=== PATIENT | female | born 1950 | race Caucasian/White ===

== ENCOUNTER 2016-12-16 06:56 | Inpatient (IN) | payer OTHER ==
[~2016-12-16] VITALS: Ht 157.5 cm; Wt 54.2 kg
[~2016-12-16 06:56] MED LIST: Atarax,Vistaril PO; BUSPAR10 MG PO; BUSPIRONE HCL15 MG PO; COGENTIN0.5 MG PO; FAMOTIDINE20 M1 PO; GEODON80 MG PO; HALDOL5 MG PO; Lasix PO; NORVASC5 MG PO; Proventil,Ventolin H IH; TEKTURNA150 MG PO; TEMAZEPAM30 MG PO; ZESTORETIC 20-1 EAC1 PO; ZOLOFT100 M1 PO; Zestril,Prinivil PO; Zoloft PO
[2016-12-16 07:55] LABS: EOSINOPHIL (%) 1.4 % (0-5); EOSINOPHIL COUNT 0.1 K/uL (0-0.3); HEMATOCRIT 38.6 % (36.0-46.0); IMMATURE GRANULOCYTE (%) 0.1 % (0.0-0.7); IMMATURE GRANULOCYTE COUNT 0.1 K/uL; LYMPHOCYTE COUNT 1.8 K/uL (1.0-2.8); MCH 29.6 PG (29.0-34.0); MCHC 33.7 G/DL (30.0-36.0); MCV 87.9 FL (83-99); MEAN PLAT.VOLUME 9.9 uM^3 (9.5-12.4); MONOCYTE (%) 6.2 % (3-12); MONOCYTE COUNT 0.5 K/uL (0-0.8); NEUTROPHIL (%) 69.6 % (45-76); NEUTROPHIL COUNT 5.4 K/uL (1.8-6.4); PLATELET COUNT 271 K/uL (156-360); RBC DIS.WIDTH-CV 14.5 % (11.8-14.6); RED BLOOD COUNT 4.39 M/uL (3.80-5.20); WHITE BLOOD COUNT 7.8 K/uL (4.1-10.2)
[2016-12-16 08:27] LABS: ANION GAP 9 MEQ/L (2-14); CHLORIDE 108 MEQ/L (99-109); POTASSIUM 3.4 MEQ/L (3.7-5.4); SAMPLE HEMOLYSIS CHECK 0; SAMPLE ICTERIC CHECK 0; SAMPLE LIPEMIA CHECK 0; SODIUM 141 MEQ/L (136-147)
[2016-12-16 08:34] LABS: GFR ESTIMATE (CALCULATED) > 59 mL/min/; GLUCOSE 97 mg/dL (70-99); SERUM ETHYL ALCOHOL < 10 mg/dL; UREA NITROGEN (BUN) 12 mg/dL (9-23)
[2016-12-16 11:10] LABS: AMPHETAMINE NEGATIVE (500 ng/mL); BARBITURATES NEGATIVE (200 ng/mL); BENZODIAZEPINES PRESUMPTIVE POSITIVE (150 ng/mL); COCAINE NEGATIVE (150 ng/mL); INTERNAL CONTROLS VALID? YES; METHADONE NEGATIVE (200 ng/mL); METHAMPHETAMINE NEGATIVE (500 ng/mL); OPIATES (MORPHINE) NEGATIVE (100 ng/mL); OXYCODONE NEGATIVE (100 ng/mL); PHENCYCLIDINE NEGATIVE (25 ng/mL); PROPOXYPHENE NEGATIVE (300 ng/mL); THC CANNABINOIDS NEGATIVE (50 ng/mL); TRICYCLIC ANTIDEPRESSANTS NEGATIVE (300 ng/mL)
[2016-12-16 11:11] LABS: ADD MEDTOX COMMENT Y
[2016-12-16 11:53] LABS: BENZODIAZEPINES, URINE SCREEN POSITIVE (200 ng/mL)
[2016-12-16 15:30] VITALS: BP 131/66
[2016-12-17 08:03] VITALS: BP 138/86
[2016-12-17 15:14] VITALS: BP 129/77
[2016-12-17 21:13] VITALS: BP 164/80
[2016-12-18 15:36] VITALS: BP 141/67
[2016-12-19 08:04] VITALS: BP 169/97
[2016-12-19 16:16] VITALS: BP 165/84
[2016-12-19 19:37] VITALS: BP 180/98
[2016-12-20 07:48] VITALS: BP 165/81
[2016-12-20 15:50] VITALS: BP 126/77
[2016-12-21 08:02] VITALS: BP 149/94
[2016-12-21 15:25] VITALS: BP 168/89
[2016-12-22 07:29] VITALS: BP 162/79
[2016-12-22 15:39] VITALS: BP 133/78
[2016-12-23 07:52] VITALS: BP 177/90
[2016-12-23 11:47] VITALS: BP 128/69
[2016-12-23 15:33] VITALS: BP 122/76
[2016-12-24 07:43] VITALS: BP 161/93
[2016-12-24 10:42] VITALS: BP 129/64
[2016-12-24 16:16] VITALS: BP 145/72
[2016-12-25 07:58] VITALS: BP 144/81
[2016-12-25 15:32] VITALS: BP 165/81
[2016-12-25 18:36] VITALS: BP 164/76
[2016-12-26 07:52] VITALS: BP 165/75
[2016-12-26 11:02] VITALS: BP 154/98
[2016-12-26 15:19] VITALS: BP 180/100
[2016-12-26 18:00] VITALS: BP 128/78
[2016-12-27 07:55] VITALS: BP 143/86
[2016-12-27 15:20] VITALS: BP 136/89
[2016-12-28 07:50] VITALS: BP 139/87
[2016-12-28 15:31] VITALS: BP 194/93
[2016-12-29 08:03] VITALS: BP 121/79
[2016-12-29 15:41] VITALS: BP 154/86
[2016-12-30 07:54] VITALS: BP 138/82
[2016-12-30 15:43] VITALS: BP 168/88
[2016-12-31 09:30] VITALS: BP 143/94
[2016-12-31 15:17] VITALS: BP 128/69
[2017-01-01 07:40] VITALS: BP 125/70
[2017-01-01 15:30] VITALS: BP 153/92
[2017-01-02 11:33] LABS: ADD MIUA? YES; BILIRUBIN NEGATIVE; BLOOD NEGATIVE; COLOR YELLOW ((YELLOW)); GLUCOSE (STRIP) NEGATIVE; KETONES 5; LEUKOCYTES LARGE; NITRITE POSITIVE; PROTEIN (STRIP) NEGATIVE; SPECIFIC GRAVITY 1.018 (1.000-1.030); UROBILINOGEN 0.2 MG/DL (0.2-1.0)
[2017-01-02 12:48] LABS: BACTERIA 3+ /HPF; EPITHELIAL CELLS RARE /HPF; MUCUS NONE SEEN /LPF; RED BLOOD CELLS 0-5 /HPF (0-5); WHITE BLOOD CELLS 20-30 /HPF (0-5)
[2017-01-03 15:49] VITALS: BP 133/65
[2017-01-04 08:08] VITALS: BP 128/82
[2017-01-04 15:11] VITALS: BP 102/56
[2017-01-05 07:46] VITALS: BP 135/82
[2017-01-05 15:19] VITALS: BP 160/82
[2017-01-06 07:57] VITALS: BP 143/82
[2017-01-06 15:56] VITALS: BP 109/73
[2017-01-07 08:01] VITALS: BP 122/69
[2017-01-07 15:59] VITALS: BP 133/79
[2017-01-08 07:55] VITALS: BP 147/69
[2017-01-08 15:38] VITALS: BP 129/81
[2017-01-09 08:04] VITALS: BP 163/79
[2017-01-09 11:46] VITALS: BP 136/91
[2017-01-09 15:41] VITALS: BP 115/72
[2017-01-10 08:01] VITALS: BP 121/77
[2017-01-10 16:06] VITALS: BP 135/80
[2017-01-11 07:52] VITALS: BP 136/63
[2017-01-11 16:04] VITALS: BP 151/86
[2017-01-12 08:09] VITALS: BP 116/65
[2017-01-12 15:58] VITALS: BP 141/74
[2017-01-13 15:31] VITALS: BP 114/70
[2017-01-14 09:48] VITALS: BP 157/70
[2017-01-14 15:51] VITALS: BP 106/62
[2017-01-15 07:30] VITALS: BP 139/86
[2017-01-15 16:06] VITALS: BP 117/78
[2017-01-16 07:45] VITALS: BP 117/71
[2017-01-16 16:06] VITALS: BP 136/87
[2017-01-17 07:59] VITALS: BP 110/72
[2017-01-17 14:59] VITALS: BP 136/82
[2017-01-18 10:09] VITALS: BP 129/93
[2017-01-18] MEDS ORDERED: PANTOPRAZOLE SO40 MG PO (10:14)
[2017-01-18] MEDS ORDERED: AMLODIPINE BESYL5 MG PO (10:14)
[2017-01-18] MEDS ORDERED: ZIPRASIDONE HCL80 MG PO (10:14)
[2017-01-18] MEDS ORDERED: HALDOL5 MG PO (10:14)
[2017-01-18] MEDS ORDERED: VENLAFAXINE HCL75 M3 PO (10:14)
[2017-01-18] MEDS ORDERED: LISINOPRIL20 MG PO (10:14)
== END 2017-01-18 11:20 | disposition home or self-care (01) | DRG 885 ==
LOC: EME 06:56 → 1WEST 12:49 → EDOF 12:49 → 1WEST 14:23
PROVIDERS: Emergency Medicine; Psychiatry & Neurology Psychiatry
DX: F25.0 Schizoaffective disorder, bipolar type (principal); Z91.19 Patient's noncompliance with other medical treatment and regimen; R45.851 Suicidal ideations; N39.0 Urinary tract infection, site not specified; F10.10 Alcohol abuse, uncomplicated; I10 Essential (primary) hypertension; J45.909 Unspecified asthma, uncomplicated; F17.200 Nicotine dependence, unspecified, uncomplicated
CPT/HCPCS: 70450; 80048; 80164; 81003; 84132; 84999; 85025; 90837; 97150 GO; 97167 GO; 99281; 99285; G0480; Q0177

== ENCOUNTER 2017-05-20 15:29 | Inpatient (IN) | payer OTHER ==
[~2017-05-20] VITALS: Ht 162.6 cm; Wt 57.5 kg
[~2017-05-20 15:29] MED LIST changes: +AMLODIPINE BESYL5 MG PO; +LISINOPRIL20 MG PO; +PANTOPRAZOLE SO40 MG PO; +VENLAFAXINE HCL75 M3 PO; +ZIPRASIDONE HCL80 MG PO
[2017-05-20 16:57] LABS: HEMATOCRIT 36.4 % (36.0-46.0); MCH 27.9 PG (29.0-34.0); MCHC 33.2 G/DL (30.0-36.0); MCV 84.1 FL (83-99); PLATELET COUNT 294 K/uL (156-360); RBC DIS.WIDTH-CV 13.9 % (11.8-14.6); RED BLOOD COUNT 4.33 M/uL (3.80-5.20)
[2017-05-20 17:07] LABS: CHLORIDE 103 mEq/L (99-109); POTASSIUM 3.5 mEq/L (3.7-5.4); SODIUM 134 mEq/L (136-147)
[2017-05-20 17:09] LABS: GLUCOSE 83 mg/dL (70-99)
[2017-05-20 17:10] LABS: ANION GAP 9 MEQ/L (2-14)
[2017-05-20 17:12] LABS: SERUM ETHYL ALCOHOL < 10 mg/dL
[2017-05-20 17:13] LABS: GFR ESTIMATE (CALCULATED) > 59 mL/min/
[2017-05-20 17:15] LABS: UREA NITROGEN (BUN) 12 mg/dL (9-23)
[2017-05-20 17:16] LABS: SALICYLATE < 5.0 MG/DL (15-30)
[2017-05-21 00:25] VITALS: BP 130/73
[2017-05-21 11:41] VITALS: BP 127/81
[2017-05-21 13:57] VITALS: BP 101/60
[2017-05-21 15:16] VITALS: BP 104/61
[2017-05-22 07:00] VITALS: BP 153/76
[2017-05-22 16:40] VITALS: BP 174/100
[2017-05-23 08:03] VITALS: BP 142/84
[2017-05-23 16:04] VITALS: BP 141/86
[2017-05-24 07:47] VITALS: BP 139/91
[2017-05-24 15:29] VITALS: BP 147/92
[2017-05-25 07:55] VITALS: BP 119/85
[2017-05-25 10:28] VITALS: BP 135/88
[2017-05-25 15:44] VITALS: BP 117/62
[2017-05-26 07:09] VITALS: BP 118/58
[2017-05-26 15:43] VITALS: BP 105/55
[2017-05-27 07:27] VITALS: BP 116/58
[2017-05-27 15:42] VITALS: BP 119/67
[2017-05-28 07:32] VITALS: BP 102/63
[2017-05-28 15:22] VITALS: BP 103/54
[2017-05-29 07:25] VITALS: BP 112/58
[2017-05-29 15:24] VITALS: BP 121/57
[2017-05-30 07:32] VITALS: BP 132/63
[2017-05-30 15:39] VITALS: BP 94/57
[2017-05-31 07:41] VITALS: BP 116/65
[2017-05-31 15:31] VITALS: BP 93/60
[2017-05-31 21:27] VITALS: BP 156/86
[2017-06-01 07:54] VITALS: BP 103/61
[2017-06-01 15:42] VITALS: BP 106/63
[2017-06-02 07:34] VITALS: BP 115/69
[2017-06-02 15:49] VITALS: BP 102/58
[2017-06-03 07:54] VITALS: BP 126/70
[2017-06-03 16:10] VITALS: BP 117/71
[2017-06-04 08:12] VITALS: BP 126/79
[2017-06-04 15:43] VITALS: BP 114/63
[2017-06-05 07:47] VITALS: BP 130/80
[2017-06-05 15:41] VITALS: BP 125/74
[2017-06-06 07:49] VITALS: BP 142/75
[2017-06-06 15:56] VITALS: BP 88/54
[2017-06-07 07:43] VITALS: BP 87/54
[2017-06-07 10:25] LABS: HEMATOCRIT 40.9 % (36.0-46.0); MCH 27.8 PG (29.0-34.0); MCV 86.8 FL (83-99); MEAN PLAT.VOLUME 10.1 uM^3 (9.5-12.4); PLATELET COUNT 253 K/uL (156-360); RBC DIS.WIDTH-CV 14.1 % (11.8-14.6); RBC DIS.WIDTH-SD 45.6 % (39-53); RED BLOOD COUNT 4.71 M/uL (3.80-5.20)
[2017-06-07 10:49] LABS: ALKALINE PHOSPHATASE 88 IU/L (3-129); ANION GAP 7 MEQ/L (2-14); CHLORIDE 105 MEQ/L (99-109); GFR ESTIMATE (CALCULATED) > 59 mL/min/; GLUCOSE 109 mg/dL (70-99); POTASSIUM 4.5 MEQ/L (3.7-5.4); SAMPLE HEMOLYSIS CHECK 0; SAMPLE ICTERIC CHECK 0; SAMPLE LIPEMIA CHECK 0; SODIUM 141 MEQ/L (136-147); TOTAL BILIRUBIN 0.3 MG/DL (0.0-1.0); UREA NITROGEN (BUN) 30 mg/dL (9-23)
[2017-06-07 15:30] VITALS: BP 125/86
[2017-06-08 07:52] VITALS: BP 92/53
[2017-06-08 15:31] VITALS: BP 119/67
[2017-06-09 07:47] VITALS: BP 105/59
[2017-06-09 15:27] VITALS: BP 137/82
[2017-06-10 07:51] VITALS: BP 136/83
[2017-06-10 15:54] VITALS: BP 135/83
[2017-06-11 07:40] VITALS: BP 115/62
[2017-06-11 15:25] VITALS: BP 139/76
[2017-06-12 07:51] VITALS: BP 132/76
[2017-06-12 15:37] VITALS: BP 91/64
[2017-06-12 18:41] VITALS: BP 104/61
[2017-06-13 07:59] VITALS: BP 115/61
[2017-06-13 16:04] VITALS: BP 133/58
[2017-06-14 07:46] VITALS: BP 105/60
[2017-06-14 15:51] VITALS: BP 124/75
[2017-06-15 08:13] VITALS: BP 116/59
[2017-06-15 15:37] VITALS: BP 114/62
[2017-06-16 07:26] VITALS: BP 119/66
[2017-06-16 15:50] VITALS: BP 103/59
[2017-06-17 08:21] VITALS: BP 123/68
[2017-06-17 15:45] VITALS: BP 116/70
[2017-06-18 08:24] VITALS: BP 99/64
[2017-06-18 13:21] VITALS: BP 92/53
[2017-06-18 16:30] VITALS: BP 145/74
[2017-06-19 07:55] VITALS: BP 135/75
[2017-06-19 16:26] VITALS: BP 113/57
[2017-06-20 09:09] VITALS: BP 163/85
[2017-06-20 16:58] VITALS: BP 122/84
[2017-06-21 07:54] VITALS: BP 154/70
[2017-06-21 11:35] VITALS: BP 114/63
[2017-06-21 15:34] VITALS: BP 116/60
[2017-06-22 07:37] VITALS: BP 117/63
[2017-06-22 15:42] VITALS: BP 102/58
[2017-06-23 07:48] VITALS: BP 119/58
[2017-06-23 15:43] VITALS: BP 110/70
[2017-06-24 07:43] VITALS: BP 118/60
[2017-06-25 07:48] VITALS: BP 113/55
[2017-06-25 15:24] VITALS: BP 102/68
[2017-06-26 08:27] VITALS: BP 125/56
[2017-06-26 16:06] VITALS: BP 138/66
[2017-06-27 07:24] VITALS: BP 132/68
[2017-06-27 15:23] VITALS: BP 136/94
[2017-06-28 07:47] VITALS: BP 124/54
[2017-06-28 15:39] VITALS: BP 122/58
[2017-06-29 08:31] VITALS: BP 124/58
[2017-06-29 15:43] VITALS: BP 155/60
[2017-06-30 07:08] VITALS: BP 99/55
[2017-06-30 15:31] VITALS: BP 126/60
[2017-07-01 07:30] VITALS: BP 112/56
[2017-07-01 15:25] VITALS: BP 132/67
[2017-07-02 07:42] VITALS: BP 144/75
[2017-07-02 15:13] VITALS: BP 110/57
[2017-07-03 07:49] VITALS: BP 108/57
[2017-07-03 16:14] VITALS: BP 119/71
[2017-07-04 07:23] VITALS: BP 118/63
[2017-07-04 15:34] VITALS: BP 139/77
[2017-07-05 07:39] VITALS: BP 132/61
[2017-07-05 15:35] VITALS: BP 105/57
[2017-07-06 07:47] VITALS: BP 123/65
[2017-07-06] MEDS ORDERED: SERTRALINE HCL100 MG PO (09:26)
[2017-07-06] MEDS ORDERED: ZIPRASIDONE HCL80 MG PO (09:26)
[2017-07-06] MEDS ORDERED: VENTOLIN HFA18 GM IH (09:26)
[2017-07-06] MEDS ORDERED: HALDOL5 MG PO (09:26)
[2017-07-06] MEDS ORDERED: AMLODIPINE BESYL5 MG PO (09:26)
[2017-07-06] MEDS ORDERED: LISINOPRIL20 MG PO (09:26)
[2017-07-06] MEDS ORDERED: COGENTIN0.5 MG PO (09:26)
== END 2017-07-06 13:13 | disposition home or self-care (01) | DRG 885 ==
LOC: EME → EDBD 15:29 → 1WEST 19:39 → EDOF 19:39 → 1WEST 23:43
PROVIDERS: Emergency Medicine; Psychiatry & Neurology Psychiatry
DX: F25.0 Schizoaffective disorder, bipolar type (principal); I10 Essential (primary) hypertension; Z91.19 Patient's noncompliance with other medical treatment and regimen; F22 Delusional disorders; J45.909 Unspecified asthma, uncomplicated; F17.200 Nicotine dependence, unspecified, uncomplicated
CPT/HCPCS: 70450; 80048; 80053; 81003; 85027; 90839; 94640; 94640 76; 97150 GO; 97166 GO; 97168 GO; 99202; 99281; 99285; G0480

== ENCOUNTER 2017-07-12 05:48 | Inpatient (IN) | payer OTHER ==
[~2017-07-12] VITALS: Ht 157.5 cm; Wt 59.5 kg
[2017-07-12] VITALS (9 sets, daily range): BP systolic 83–142; BP diastolic 56–86
[~2017-07-12 05:48] MED LIST changes: +SERTRALINE HCL100 MG PO; +VENTOLIN HFA18 GM IH
[2017-07-12 06:52] LABS: PROTHROMBIN TIME 11.3 SEC (10.2-12.9)
[2017-07-12 07:05] LABS: EOSINOPHIL (%) 0 % (0-5); HEMATOCRIT 19.3 % (36.0-46.0); IMMATURE GRANULOCYTE (%) 0.6 % (0.0-0.7); IMMATURE GRANULOCYTE COUNT 0.1 K/uL; INSTRUMENT ABS NEUTROPHIL CT 6.2 K/uL; LYMPHOCYTE COUNT 1.1 K/uL (1.0-2.8); MCHC 32.6 G/DL (30.0-36.0); MCV 88.9 FL (83-99); MEAN PLAT.VOLUME 10.3 uM^3 (9.5-12.4); MONOCYTE COUNT 0.5 K/uL (0-0.8); NEUTROPHIL (%) 79.8 % (45-76); NEUTROPHIL COUNT 6.2 K/uL (1.8-6.4); PLATELET COUNT 126 K/uL (156-360); RBC DIS.WIDTH-CV 14.9 % (11.8-14.6); RBC DIS.WIDTH-SD 47.8 % (39-53); RED BLOOD COUNT 2.17 M/uL (3.80-5.20); WHITE BLOOD COUNT 7.8 K/uL (4.1-10.2)
[2017-07-12 07:24] LABS: ALKALINE PHOSPHATASE 53 IU/L (3-129); ANION GAP 4 MEQ/L (2-14); CHLORIDE 113 MEQ/L (99-109); GFR ESTIMATE (CALCULATED) > 59 mL/min/; GLUCOSE 94 mg/dL (70-99); POTASSIUM 4.6 MEQ/L (3.7-5.4); SAMPLE HEMOLYSIS CHECK 0; SAMPLE ICTERIC CHECK 0; SAMPLE LIPEMIA CHECK 0; SODIUM 138 MEQ/L (136-147); TOTAL BILIRUBIN 0.2 MG/DL (0.0-1.0); UREA NITROGEN (BUN) 33 mg/dL (9-23)
[2017-07-12 13:06] LABS: TROP-I INTERPRETATION NEGATIVE; TROPONIN-I 0.12 ng/mL (0.0-0.30)
[2017-07-12 13:34] LABS: HEMATOCRIT 21.7 % (36.0-46.0); MCV 89.7 FL (83-99)
[2017-07-12 15:22] LABS: HEMATOCRIT 24.2 % (36.0-46.0); MCV 88.6 FL (83-99)
[2017-07-12 15:48] LABS: TROP-I INTERPRETATION NEGATIVE; TROPONIN-I 0.15 ng/mL (0.0-0.30)
[2017-07-12 22:55] LABS: MCV 85.1 FL (83-99)
[2017-07-12 23:16] LABS: TROP-I INTERPRETATION NEGATIVE
[2017-07-13] VITALS (7 sets, daily range): BP systolic 123–161; BP diastolic 66–82
[2017-07-13 05:30] LABS: HEMATOCRIT 25.5 % (36.0-46.0); MCH 29.2 PG (29.0-34.0); MCHC 34.1 G/DL (30.0-36.0); MCV 85.6 FL (83-99); MEAN PLAT.VOLUME 10.7 uM^3 (9.5-12.4); NRBC (%) 0.3 /100 WBC (0-0); PLATELET COUNT 110 K/uL (156-360); RBC DIS.WIDTH-SD 48.3 % (39-53); WHITE BLOOD COUNT 7.2 K/uL (4.1-10.2)
[2017-07-13 05:36] LABS: RED BLOOD COUNT 2.98 M/uL (3.80-5.20)
[2017-07-13 06:08] LABS: ALKALINE PHOSPHATASE 71 IU/L (3-129); ANION GAP 7 MEQ/L (2-14); CHLORIDE 111 MEQ/L (99-109); GFR ESTIMATE (CALCULATED) > 59 mL/min/; GLUCOSE 104 mg/dL (70-99); POTASSIUM 4.1 MEQ/L (3.7-5.4); SAMPLE HEMOLYSIS CHECK 0; SAMPLE ICTERIC CHECK 0; SAMPLE LIPEMIA CHECK 0; SODIUM 137 MEQ/L (136-147); UREA NITROGEN (BUN) 20 mg/dL (9-23)
[2017-07-13 06:12] LABS: TOTAL BILIRUBIN 0.5 MG/DL (0.0-1.0)
[2017-07-13] MEDS ORDERED: LISINOPRIL20 MG PO (14:00)
[2017-07-13] MEDS ORDERED: HALDOL10 MG PO (14:00)
[2017-07-13] MEDS ORDERED: AMLODIPINE BESYL5 MG PO (14:01)
[2017-07-13] MEDS ORDERED: BENZTROPINE ME0.5 MG PO (14:01)
[2017-07-13] MEDS ORDERED: SERTRALINE HCL100 MG PO (14:02)
[2017-07-13] MEDS ORDERED: ZIPRASIDONE HCL80 MG PO (14:03)
[2017-07-13] MEDS ORDERED: VENTOLIN HFA18 GM IH (14:05)
[2017-07-14 04:07] VITALS: BP 145/71
[2017-07-14 04:39] LABS: MCH 29.8 PG (29.0-34.0); MCHC 34.2 G/DL (30.0-36.0); MCV 87.3 FL (83-99); MEAN PLAT.VOLUME 10.3 uM^3 (9.5-12.4); NRBC (%) 0.3 /100 WBC (0-0); PLATELET COUNT 122 K/uL (156-360); RBC DIS.WIDTH-CV 16.9 % (11.8-14.6); RBC DIS.WIDTH-SD 51.2 % (39-53); RED BLOOD COUNT 2.75 M/uL (3.80-5.20); WHITE BLOOD COUNT 7.7 K/uL (4.1-10.2)
[2017-07-14 08:00] VITALS: BP 135/63
[2017-07-14 12:15] VITALS: BP 135/73
[2017-07-14 20:20] VITALS: BP 149/72
[2017-07-14 23:32] VITALS: BP 151/74
[2017-07-15 03:52] VITALS: BP 138/67
[2017-07-15 06:42] LABS: HEMATOCRIT 24.5 % (36.0-46.0); MCH 29.3 PG (29.0-34.0); MCHC 32.7 G/DL (30.0-36.0); MCV 89.7 FL (83-99); MEAN PLAT.VOLUME 10.7 uM^3 (9.5-12.4); NRBC (%) 0.7 /100 WBC (0-0); PLATELET COUNT 137 K/uL (156-360); RBC DIS.WIDTH-CV 17.8 % (11.8-14.6); RED BLOOD COUNT 2.73 M/uL (3.80-5.20); WHITE BLOOD COUNT 4.4 K/uL (4.1-10.2)
[2017-07-15 08:10] VITALS: BP 135/60
[2017-07-15] MEDS ORDERED: PANTOPRAZOLE SO40 MG PO (10:00)
[2017-07-15] MEDS ORDERED: NICOTINE PATCH1 EAC2 TD (10:00)
[2017-07-15] MEDS ORDERED: SPIRIVA1 INHALATI IH (10:00)
[2017-07-15] MEDS ORDERED: ADVAIR HFA120 INHALA IH (10:00)
[2017-07-15] MEDS ORDERED: PREDNISONE20 MG PO (10:00)
[2017-07-15 16:14] VITALS: BP 130/78
[2017-07-15] MEDS ORDERED: BENZTROPINE ME0.5 MG PO (16:22)
[2017-07-15] MEDS ORDERED: HALDOL10 MG PO (16:22)
[2017-07-15] MEDS ORDERED: ZIPRASIDONE HCL80 MG PO (16:22)
== END 2017-07-15 17:40 | disposition home health service (06) | DRG 377 ==
LOC: EME → EDBD 05:48 → EDOF 09:07 → 4EAST 09:07 → 3EAST 09:07 → ENRESERV 09:08 → EDOF 09:18 → 4EAST 12:20 → ENRESERV 07-14 12:43 → 3EAST 07-14 20:10
PROVIDERS: Emergency Medicine; Internal Medicine; Specialist
PROC: 30233N1 Transfusion of Nonautologous Red Blood Cells into Peripheral Vein, Percutaneous Approach (ICD-10-PCS; principal; 2017-07-12)
PROC: 0W3P8ZZ Control Bleeding in Gastrointestinal Tract, Via Natural or Artificial Opening Endoscopic (ICD-10-PCS; 2017-07-12)
DX: K26.4 Chronic or unspecified duodenal ulcer with hemorrhage (principal); R57.1 Hypovolemic shock; D62 Acute posthemorrhagic anemia; J44.1 Chronic obstructive pulmonary disease with (acute) exacerbation; D69.6 Thrombocytopenia, unspecified; F25.0 Schizoaffective disorder, bipolar type; K31.811 Angiodysplasia of stomach and duodenum with bleeding; K22.10 Ulcer of esophagus without bleeding; K44.9 Diaphragmatic hernia without obstruction or gangrene; I10 Essential (primary) hypertension; K80.20 Calculus of gallbladder without cholecystitis without obstruction; F17.210 Nicotine dependence, cigarettes, uncomplicated
CPT/HCPCS: 71010; 74177; 80053; 84484; 85014; 85018; 85025; 85027; 85610; 86850; 86900; 86901; 86920; 94640; 94640 76; 94760; 94799; 99202; 99281; 99285; C9113; J1940; J1956; J2920; J2930; J7030; J7050; J7512; P9016; P9040